=== PATIENT | female | born 1975 | race Two or more races ===

== ENCOUNTER 2016-10-22 14:01 | Emergency (ER) | payer MEDICAID ==
[~2016-10-22] VITALS: Ht 162.6 cm; Wt 79.0 kg
[2016-10-22 14:17] VITALS: Ht 162.6 cm; Wt 79.0 kg
[2016-10-22] MEDS ORDERED: SOD CHLORIDE 0.9% 1,000 ML IV STA (14:51)
[2016-10-22 14:59] LABS: URINE BLOOD (Dip) POC 2+ (NEGATIVE)
[2016-10-22] MEDS ORDERED: METOCLOPRAMIDE 10 MG INJ IV ONE (15:00)
[2016-10-22 15:33] LABS: ADD SCAN DIFF NO
[2016-10-22 15:35] LABS: BASOPHILS % 0.1 % (0.0-2.0); EOSINOPHILS % 0.3 % (0.0-7.0); HEMATOCRIT 40.2 % (37.0-47.0); HEMOGLOBIN 13.9 g/dl (12.0-16.0); LYMPHOCYTES # 1.8 10^3/ul (0.8-2.9); LYMPHOCYTES % 16.8 % (15.0-51.0); MEAN CORPUSCULAR HEMOGLOBIN 28.3 pg (29.0-33.0); MEAN CORPUSCULAR HGB CONC 34.6 g/dl (32.0-37.0); MEAN CORPUSCULAR VOLUME 81.7 fl (82.0-101.0); MEAN PLATELET VOLUME 10.6 fl (7.4-10.4); MONOCYTE # 0.7 10^3/ul (0.3-0.9); MONOCYTES % 6.7 % (0.0-11.0); NEUTROPHIL # 8.2 10^3/ul (1.6-7.5); NEUTROPHILS % 75.6 % (39.0-77.0); PLATELET COUNT 240 10^3/UL (140-415); RED BLOOD COUNT 4.92 10^6/ul (4.20-5.40); RED CELL DISTRIBUTION WIDTH 12.9 % (11.5-14.5); WHITE BLOOD COUNT 10.9 10^3/ul (4.8-10.8)
[2016-10-22 15:40] LABS: ADD UMIC YES; URINE BILIRUBIN (Dip) NEGATIVE (NEGATIVE); URINE BLOOD (Dip) 3+ (NEGATIVE); URINE COLOR LT. YELLOW (YELLOW); URINE GLUCOSE (Dip) NEGATIVE (NEGATIVE); URINE KETONES (Dip) NEGATIVE (NEGATIVE); URINE LEUKOCYTE ESTERASE (Dip) NEGATIVE (NEGATIVE); URINE NITRITE (Dip) NEGATIVE (NEGATIVE); URINE TOTAL PROTEIN (Dip) NEGATIVE (NEGATIVE); URINE UROBILINOGEN (Dip) 0.2 E.U./dL (0.1-1.0)
[2016-10-22 15:50] LABS: SQUAMOUS EPITHELIAL CELL,UR FEW
[2016-10-22 15:51] LABS: BACTERIA,URINE FEW
[2016-10-22 15:59] LABS: ALBUMIN 4.1 g/dl (3.3-4.9)
[2016-10-22 16:00] LABS: POTASSIUM 3.7 mmol/L (3.5-5.1)
[2016-10-22 16:02] LABS: ALBUMIN/GLOBULIN RATIO 1.24; BILIRUBIN,INDIRECT 0.2 mg/dl (0-1.1); BILIRUBIN,TOTAL 0.2 mg/dl (0.2-1.3); CREATININE 0.53 mg/dl (0.44-1.00); TOTAL PROTEIN 7.4 g/dl (6.1-8.1)
[2016-10-22 16:03] LABS: CALCIUM 9.5 mg/dl (8.4-10.2)
--- NOTE | 2016-10-22 16:06 | RADRPT ---
PROCEDURE: OBSTETRICAL ULTRASOUND WITH ENDOVAGINAL IMAGES CLINICAL INDICATION: Vaginal Bleed () TECHNIQUE: Multiple sonographic images of the pelvis were obtained utilizing a transabdominal and endovaginal technique. The images were reviewed on a PACS workstation. COMPARISON: None. LMP: 07/18/2016 FINDINGS: The uterus measures 12.0 x 8.5 x 10.8 cm. There is a single live intrauterine with heart rate of 171 beats per minute, mean sa c diameter of 5.87 cm, yolk sac, and crown-rump length of 6.27 cm which is consistent with a gestati onal age of 12 weeks, 6 days . The estimated date of delivery by ultrasound is 04/30/2017 . The estimated gestational age by LMP is 13 weeks, 5 days . The estimated date of delivery by LMP is 04/24/2017 . There is a 1.7 cm anterior submucosal uterine fibroid at the level of the upper body with prominent posterior displacement of the gestational sac. There is a 2.2 cm submucosal uterine fibroid at the level of the mid body, to the right of midline, with prominent displacement of the endometrium. There is a 1.7 cm posterior submucosal uterine fibroid at the level of the mid body with mild anteri or displacement of the endometrium, to the left of midline. There is a 3.5 cm posterior subserosal uterine fibroid at the level of the lower uterine segment, to the right of midline. The right ovary is not visualized. The left ovary measures 2.8 x 2.1 x 2.0 cm. There is normal vascu lar flow in the left ovary No significant ovarian lesions are seen. No significant pelvic free fluid is identified. IMPRESSION: Single live intrauterine consistent with a gestational age of 12 weeks, 6 days . The estimated date of delivery is 04/30/2017 . Dating by ultrasound is within 6 days of dating by LMP. Multiple uterine fibroids are identified, some of which are submucosal and demonstrate displacement of the gestational sac and endometrium, measuring up to 3.5 cm, as above. Nonvisualization of the right ovary. RPTAT: EE Jose Reeder Physician Date Time Electronically viewed and signed by Jose Varinder, Physician on 10/22/2016 16:06 RA/
--- NOTE | 2016-10-22 17:15 | ERD ---
ER Documentation Chief Complaint Date/Time DATE: 10/22/16 TIME: 17:10 Chief Complaint HEAVY VB TODAY AT 1200; LIGHT VB & CRAMPING NOW. 12-WKS . HPI 41-year-old female with no significant past medical history is a presents to the ED complaining of vaginal bleeding that occurred earlier today at 12 AM. Reports that she has had to change 2 pads since the onset of the bleeding. Reports that she has bilateral pelvic pain. Reports that she is nauseous and has slight vomiting. Denies any chest pain, shortness of breath, wheezing, fever, chills, cough, rhinorrhea. Patient states that her last menses on July 18, 2016. Denies any vaginal discharge. ROS All systems reviewed and are negative except as per history of present illness. PMhx/Soc History of Surgery: No Anesthesia Reaction: No Hx Neurological Disorder: No Hx Respiratory Disorders: No Hx Cardiac Disorders: No Hx Psychiatric Problems: No Hx Miscellaneous Medical Probl: No Hx Alcohol Use: No Hx Substance Use: No Hx Tobacco Use: No Smoking Status: Never smoker Physical Exam Vitals Vital Signs Date Time Temp Pulse Resp B/P Pulse Ox O2 Delivery O2 Flow Rate FiO2 10/22/16 14:17 99.9 84 16 151/81 97 Physical Exam Const: [id number], well-nourished. In no acute distress. Head: Atraumatic, normocephalic Eyes: Normal Conjunctiva without injection. No purulent discharge. ENT: Normal external ear, nose. Moist oropharynx without tonsillar exudates. Non -erythematous pharynx. Uvula midline. No drooling. No trismus. Neck: No cervical midline tenderness. Full range of motion. No meningismus. No cervical lymphadenopathy. No JVD. Resp: Clear to auscultation bilaterally. No wheezing, rhonchi, rales, or crackles. No accessory muscle use. No retractions. Cardio: Regular rate and rhythm. No murmurs, rubs or gallops. Abd: Soft, nontender, non distended. Normal bowel sounds. No palpable masses. No rebound tenderness. No guarding. Negative McBurney's point. Negative psoas sign. Negative obturator sign. Skin: No petechiae or rashes Back: No midline tenderness. No CVA tenderness. Ext: No cyanosis, or edema. Neur: Awake and alert. Normal gait. Normal coordination. Psych: Normal Mood and Affect Result Diagram: 10/22/16 1515 10/22/16 1515 Results 24 hrs Laboratory Tests Test 10/22/16 14:58 10/22/16 15:15 Bedside Urine pH (LAB) 5.5 Bedside Urine Protein (LAB) Negative Bedside Urine Glucose (UA) Negative Bedside Urine Ketones (LAB) Negative Bedside Urine Blood 2+ Bedside Urine Nitrite (LAB) Negative Bedside Urine Leukocyte Esterase (L Negative White Blood Count 10.910^3/ul Red Blood Count 4.9210^6/ul Hemoglobin 13.9g/dl Hematocrit 40.2% Mean Corpuscular Volume 81.7fl Mean Corpuscular Hemoglobin 28.3pg Mean Corpuscular Hemoglobin Concent 34.6g/dl Red Cell Distribution Width 12.9% Platelet Count 62977^3/UL Mean Platelet Volume 10.6fl Neutrophils % 75.6% Lymphocytes % 16.8% Monocytes % 6.7% Eosinophils % 0.3% Basophils % 0.1% Nucleated Red Blood Cells % 0.0/100WBC Neutrophils # 8.210^3/ul Lymphocytes # 1.810^3/ul Monocytes # 0.710^3/ul Eosinophils # 0.010^3/ul Basophils # 0.010^3/ul Nucleated Red Blood Cells # 0.010^3/ul Urine Color LT. YELLOW Urine Clarity HAZY Urine pH 6.0 Urine Specific [place] 1.025 Urine Ketones NEGATIVE Urine Nitrite NEGATIVE Urine Bilirubin NEGATIVE Urine Urobilinogen 0.2 E.U./dL Urine Leukocyte Esterase NEGATIVE Urine Microscopic RBC 2-5/HPF Urine Microscopic WBC 0-2/HPF Urine Squamous Epithelial Cells FEW Urine Calcium Oxalate Crystals MANY Urine Bacteria FEW Urine Hemoglobin 3+ Urine Glucose NEGATIVE% Urine Total Protein NEGATIVE Sodium Level 134mmol/L Potassium Level 3.7mmol/L Chloride Level 101mmol/L Carbon Dioxide Level 25mmol/L Anion Gap 12 Blood Urea Nitrogen 12mg/dl Creatinine 0.53mg/dl Glucose Level 90mg/dl Calcium Level 9.5mg/dl Total Bilirubin 0.2mg/dl Direct Bilirubin 0.00mg/dl Indirect Bilirubin 0.2mg/dl Aspartate Amino Transf (AST/SGOT) 20IU/L Alanine Aminotransferase (ALT/SGPT) 32IU/L Alkaline Phosphatase 54IU/L Total Protein 7.4g/dl Albumin 4.1g/dl Globulin 3.30g/dl Albumin/Globulin Ratio 1.24 Lipase 85U/L Current Medications Medications (Trade) Dose Ordered Sig/Lin Route PRN Reason Start Time Stop Time Status Last Admin Dose Admin Sodium Chloride (NS) 1,000 ml @ 1,000 mls/hr Q1H STAT IV 10/22/16 14:51 10/22/16 15:50 DC 10/22/16 15:10 Metoclopramide HCl (Reglan) 10 mg ONCE ONCE IV 10/22/16 15:00 10/22/16 15:01 DC 10/22/16 15:10 Procedures/MDM This is a 41-year-old female with no significant past medical history presents the ED complaining of vaginal bleeding that started earlier today at 12 AM. Patient is afebrile and nontoxic-appearing. An ultrasound, beta-hCG, CBC, type and RH, UA was ordered to evaluate patient. CBC: No evidence of severe infection or anemia Urine: No elevation in nitrites, leukocyte esterase, hematuria. No evidence of UTI Rh: O positive No indication for Rhogam at this time. beta Hcg: PROCEDURE: OBSTETRICAL ULTRASOUND WITH ENDOVAGINAL IMAGES CLINICAL INDICATION: Vaginal Bleed () TECHNIQUE: Multiple sonographic images of the pelvis were obtained utilizing a transabdominal and endovaginal technique. The images were reviewed on a PACS workstation. COMPARISON: None. LMP: 07/18/2016 FINDINGS: The uterus measures 12.0 x 8.5 x 10.8 cm. There is a single live intrauterine with heart rate of 171 beats per minute, mean sac diameter of 5.87 cm, yolk sac, and crown-rump length of 6.27 cm which is consistent with a gestational age of 12 weeks, 6 days . The estimated date of delivery by ultrasound is 04/30/2017 . The estimated gestational age by LMP is 13 weeks, 5 days . The estimated date of delivery by LMP is 04/24/2017 . There is a 1.7 cm anterior submucosal uterine fibroid at the level of the upper body with prominent posterior displacement of the gestational sac. There is a 2.2 cm submucosal uterine fibroid at the level of the mid body, to the right of midline, with prominent displacement of the endometrium. There is a 1.7 cm posterior submucosal uterine fibroid at the level of the mid body with mild anterior displacement of the endometrium, to the left of midline. There is a 3.5 cm posterior subserosal uterine fibroid at the level of the lower uterine segment, to the right of midline. The right ovary is not visualized. The left ovary measures 2.8 x 2.1 x 2.0 cm. There is normal vascular flow in the left ovary No significant ovarian lesions are seen. No significant pelvic free fluid is identified. IMPRESSION: Single live intrauterine consistent with a gestational age of 12 weeks , 6 days . The estimated date of delivery is 04/30/2017 . Dating by ultrasound is within 6 days of dating by LMP. Multiple uterine fibroids are identified, some of which are submucosal and demonstrate displacement of the gestational sac and endometrium, measuring up to 3.5 cm, as above. Nonvisualization of the right ovary. Patient's bleeding symptoms have stabilized while in the department. Low suspicion for symptomatic anemia, ectopic , sepsis, PID, appendicitis, ovarian torsion, tubo-ovarian abscess, surgical abdomen, or other emergent conditions. Patient was educated that there is a risk for threatened . Patient to follow up with [facility] in 2 days for further evaluation and treatment. Patient is to return sooner to the ED for any worsening symptoms. Patient's questions were answered. Patient understood and agreed with discharge plan. Departure Diagnosis: Primary Impression: Vaginal bleeding in patient at less than 20 weeks ges... Condition: Stable Patient Instructions: Bleeding During Early Referrals: COMMUNITY CLINICS YOU HAVE RECEIVED A MEDICAL SCREENING EXAM AND THE RESULTS INDICATE THAT YOU DO NOT HAVE A CONDITION THAT REQUIRES URGENT TREATMENT IN THE EMERGENCY DEPARTMENT. FURTHER EVALUATION AND TREATMENT OF YOUR CONDITION CAN WAIT UNTIL YOU ARE SEEN IN YOUR DOCTORS OFFICE WITHIN THE NEXT 1-2 DAYS. IT IS YOUR RESPONSIBILITY TO MAKE AN APPOINTMENT FOR FOLOW-UP CARE. IF YOU HAVE A PRIMARY DOCTOR --you should call your primary doctor and schedule an appointment IF YOU DO NOT HAVE A PRIMARY DOCTOR YOU CAN CALL OUR PHYSICIAN REFERRAL HOTLINE AT IF YOU CAN NOT AFFORD TO SEE A PHYSICIAN YOU CAN CHOSE FROM THE FOLLOWING [facility] CLINICS [facility] [address] [facility] [facility]. [facility] [address] [facility]. [facility] [address] [facility] [address] [facility] [address] [facility]. [address] [facility]. [facility] YOU HAVE RECEIVED A MEDICAL SCREENING EXAM AND THE RESULTS INDICATE THAT YOU DO NOT HAVE A CONDITION THAT REQUIRES URGENT TREATMENT IN THE EMERGENCY DEPARTMENT. FURTHER EVALUATION AND TREATMENT OF YOUR CONDITION CAN WAIT UNTIL YOU ARE SEEN IN YOUR DOCTORS OFFICE WITHIN THE NEXT 1-2 DAYS. IT IS YOUR RESPONSIBILITY TO MAKE AN APPOINTMENT FOR FOLOW-UP CARE. IF YOU HAVE A PRIMARY DOCTOR --you should call your primary doctor and schedule and appointment IF YOU DO NOT HAVE A PRIMARY DOCTOR YOU CAN CALL OUR PHYSICIAN REFERRAL HOTLINE AT . IF YOU CAN NOT AFFORD TO SEE A PHYSICIAN YOU CAN CHOSE FROM THE FOLLOWING [facility] INSTITUTIONS: [facility] [address] [place] [address] [facility] [address] [place] [address] [facility] [address] [place] [address] [facility] [place] [address] [facility] [address] [place], [place] [phone] OFFICE FAX ELIZABETH RIBERA [address] [place], [place] [phone] [facility] [address] [place], [place] [phone] [facility] [address] [facility], [address] [id number] JORGE A [address] [address] [place] [phone] [facility] [address] [place] [id number] [address] [facility] [place] [address] [address], [address] [facility] [address] [address] BREWSTER, [place] [address] [facility]. [address], [facility] [address] [address] [place], [place] [address] [place] [address] [facility] Hours: 8:00 am - 5:00 pm Additional Instructions: Visite a schneider obstetrica en dos fritz para un EXAMEN.Regrese a estas instalaciones si no se mejora draby esperbamos o darby le dijimos. MOSES GUEVARA PA-C Oct 22, 2016 17:15
== END 2016-10-22 17:22 | disposition home or self-care (01) ==
LOC: FTE 14:01
DX: O20.9 Hemorrhage in early pregnancy, unspecified (principal); R10.2 Pelvic and perineal pain; Z3A.12 12 weeks gestation of pregnancy
CPT/HCPCS: 76801; 80053; 81001; 81003; 83690; 84702; 85025; 86900; 86901; J2765; J7030; 36415; 96374

== ENCOUNTER 2017-04-29 16:40 | Inpatient (IN) | payer MEDICAID ==
[~2017-04-29] VITALS: Ht 152.4 cm; Wt 96.0 kg
[2017-04-29 17:10] VITALS: BP 128/82; PULSE 78; RESP 20
--- NOTE | 2017-04-29 17:27 | RADRPT ---
PROCEDURE: US biophysical profile. CLINICAL INDICATION: Decreased motion. TECHNIQUE: Multiple sonographic images of the uterus were obtained. The images were revi ewed on a PACS workstation. COMPARISON: No prior studies are available for comparison. FINDINGS: There is a single live intrauterine gestation. heart rate is 126 beats per minute. The position is cephalic. The placenta is right lateral grade 2 with no abruption or previa. The NING is 8.6 cm. (Normal = 5-20 cm.) Breathing Movement: 2 Gross Body Movement: 2 Tone: 2 Qualitative Amniotic Fluid Volume: 2 TOTAL: 8 IMPRESSION: 1. The biophysical score is 8/8. RPTAT: QQ .Cesario Apple MD, MD Date Time Electronically viewed and signed by .Cesario Apple MD, on 04/29/2017 17:27 .R/
[2017-04-29 17:54] LABS: ADD UMIC YES; UR ASCORBIC ACID NEGATIVE (NEGATIVE); UR BACTERIA FEW /HPF (NONE SEEN); UR BILIRUBIN (Dip) NEGATIVE (NEGATIVE); UR BLOOD (Dip) NEGATIVE (NEGATIVE); UR CLARITY CLEAR (CLEAR); UR COLOR STRAW (YELLOW); UR GLUCOSE (Dip) NEGATIVE (NEGATIVE); UR KETONES (Dip) NEGATIVE (NEGATIVE); UR LEUKOCYTE ESTERASE (Dip) TRACE Leu/ul (NEGATIVE); UR NITRITE (Dip) NEGATIVE (NEGATIVE); UR RBC 1 /HPF (0-5); UR SPECIFIC GRAVITY (Dip) 1.008 (1.003-1.030); UR SQUAMOUS EPITHELIAL CELL FEW /HPF (FEW); UR TOTAL PROTEIN (Dip) NEGATIVE (NEGATIVE); UR UROBILINOGEN (Dip) NEGATIVE (NEGATIVE)
[2017-04-29 17:54] LABS: BASOPHILS % 0.2 % (0.0-2.0); EOSINOPHILS % 0.3 % (0.0-7.0); HEMATOCRIT 38.7 % (37.0-47.0); HEMOGLOBIN 13.6 g/dl (12.0-16.0); LYMPHOCYTES # 1.7 10^3/ul (0.8-2.9); LYMPHOCYTES % 18.1 % (15.0-51.0); MEAN CORPUSCULAR HEMOGLOBIN 29.6 pg (29.0-33.0); MEAN CORPUSCULAR HGB CONC 35.1 g/dl (32.0-37.0); MEAN CORPUSCULAR VOLUME 84.1 fl (82.0-101.0); MONOCYTE # 0.8 10^3/ul (0.3-0.9); MONOCYTES % 8.7 % (0.0-11.0); NEUTROPHIL # 6.9 10^3/ul (1.6-7.5); NEUTROPHILS % 71.9 % (39.0-77.0); PLATELET COUNT 226 10^3/UL (140-415); RED CELL DISTRIBUTION WIDTH 13.3 % (11.5-14.5); WHITE BLOOD COUNT 9.6 10^3/ul (4.8-10.8)
[2017-04-29 18:25] LABS: PARTIAL THROMBOPLASTIN TIME 26.4 Sec (25.0-35.0)
[2017-04-29 18:28] LABS: ALBUMIN 3.5 g/dl (3.3-4.9); ALBUMIN/GLOBULIN RATIO 0.94; BILIRUBIN,INDIRECT 0.2 mg/dl (0-1.1); BILIRUBIN,TOTAL 0.2 mg/dl (0.2-1.3); CALCIUM 10.1 mg/dl (8.4-10.2); CREATININE 0.62 mg/dl (0.44-1.00); POTASSIUM 4.1 mmol/L (3.5-5.1); TOTAL PROTEIN 7.2 g/dl (6.1-8.1); URIC ACID 5.5 mg/dl (3.1-7.9)
[2017-04-29 18:30] LABS: INR 0.95; PROTIME 12.7 Sec (12.2-14.2)
[2017-04-29] MEDS ORDERED: IBUPROFEN 600 MG TAB PO PRN (23:30)
[2017-04-29] MEDS ORDERED: OXYTOCIN 30 UNITS/LR 500 ML IV SCH ×2 (23:30)
[2017-04-29] MEDS ORDERED: LIDOCAINE 1% (MPF) 30 ML INJ INJ PRN (23:30)
[2017-04-29] MEDS ORDERED: OXYTOCIN 30 UNITS/LR 500 ML IV PRN (23:30)
[2017-04-29] MEDS ORDERED: CARBOPROST 250 MCG INJ IM PRN (23:30)
[2017-04-29] MEDS ORDERED: METHYLERGONOVINE 0.2 MG INJ IM PRN (23:30)
[2017-04-29] MEDS ORDERED: MISOPROSTOL 200 MCG TAB PR PRN (23:30)
[2017-04-29] MEDS ORDERED: BUTORPHANOL 2 MG INJ IV PRN (23:30)
[2017-04-30] MEDS ORDERED: AMPICILLIN 2 GM/NS (PMX) 100 ML IV ONE (01:00)
[2017-04-30] MEDS ORDERED: LACTATED RINGER'S 1,000 ML IV PRN (01:00)
[2017-04-30 01:15] LABS: INR 0.91; PROTIME 12.2 Sec (12.2-14.2)
[2017-04-30] MEDS: LACTATED RINGER'S 1,000 ML IV SCH ×3 (01:15→14:18)
[2017-04-30 01:16] LABS: PARTIAL THROMBOPLASTIN TIME 26.1 Sec (25.0-35.0)
--- NOTE | 2017-04-30 04:10 | HP ---
Date/Time of Note Date/Time of Note DATE: 04/30/17 TIME: 04:00 OB - History Hx of Present Free Text/Dictation 41y.o at triage with c/o headahce and dissiness at 39w1d BP 128/82, 127/80 initial exam ftp /40%/-2 membrane intact re exam cervix 2/50/-2 admitted for expectant management poss augmentation BPP 8/8 NING 8.6 urine protein neg platelet 226 Chief Complaint: headache and dizziness Estimated Due Date: May 05, 2017 : 2 Para: 1 Spontaneous : 0 Therapeutic : 0 Care: Limited Care Obstetrical Complications: None Medical Complications: None Past Family/Social History * Past Medical, Surgical, Family and Obstetric Histories reviewed from chart. Blood Type: Unknown Rubella: unknown RPR/VDRL: Unknown GBS Status: Unknown HBsAG: Unknown OB Admission Exam Vital Signs Vital Signs Vital Signs Date Time Temp Pulse Resp B/P Pulse Ox O2 Delivery O2 Flow Rate FiO2 04/29/17 17:10 97.8 78 20 128/82 Room Air Physical Exam HEENT: WNL Heart: Rhythm Normal Lungs: Clear, Equal Abdomen: WNL Extremities: Normal Reflexes: Normal Cervical Dilatation: 2cm Effacement: 50% Station: -2 Membranes: Intact Amniotic Fluid: Unevaluable Heart Rate: 120's Accelerations: Accelerations Present Decelerations: No Decelerations Varibility: Moderate Contractions on Admission: >10 Minutes Apart Intensity: Mild Last 72 hours Lab Results CBC & BMP 04/29/17 17:27 Liver Function Test 04/29/17 17:27 Alanine Aminotransferase (ALT/SGPT) 27 Albumin 3.5 Alkaline Phosphatase 155 H Aspartate Amino Transf (AST/SGOT) 23 Direct Bilirubin 0.00 Total Protein 7.2 OB Assessment/Plan Other Assessment: IUP 39w1d borderline oligohydramnios Plan: Expectant Management, Other (augmentation) RENEE OLSEN MD Apr 30, 2017 04:10
--- NOTE | 2017-04-30 04:27 | HP ---
Date/Time of Note Date/Time of Note DATE: 04/30/17 TIME: 04:10 OB - History Hx of Present Free Text/Dictation 41 y.o at 39w1d with c/o headahe and dizziness , no significant uterine contractions intact membrane BPP 8/8 NING 8.6 BP 128/82, 127/80 at 34w BP 130's/90 urine protein neg initial VE ftp/40%/-2 , reexam 2/50%/-2 admitted for expectant management poss augmentation Chief Complaint: headache and dizziness Estimated Due Date: May 05, 2017 : 2 Para: 1 Spontaneous : 0 Therapeutic : 0 Care: Good Care Ultrasounds: Normal mid trimester US Abnormal Ultrasound Findings: rt clubfoot, uterine fibroid Obstetrical Complications: None Medical Complications: None Past Family/Social History * Past Medical, Surgical, Family and Obstetric Histories reviewed from chart. Blood Type: O+ Rubella: immune RPR/VDRL: Negative GBS Status: Negative HBsAG: Negative OB Admission Exam Vital Signs Vital Signs Vital Signs Date Time Temp Pulse Resp B/P Pulse Ox O2 Delivery O2 Flow Rate FiO2 04/29/17 17:10 97.8 78 20 128/82 Room Air Physical Exam HEENT: WNL Heart: Rhythm Normal Lungs: Clear, Equal Abdomen: WNL Extremities: Normal Reflexes: Normal Cervical Dilatation: 2cm Effacement: 50% Station: -2 Membranes: Intact Amniotic Fluid: Unevaluable Heart Rate: 120's Accelerations: Accelerations Present Decelerations: No Decelerations Varibility: Moderate Contractions on Admission: 6-10 Minutes Apart Intensity: Mild Last 72 hours Lab Results CBC & BMP 04/29/17 17:27 Liver Function Test 04/29/17 17:27 Alanine Aminotransferase (ALT/SGPT) 27 Albumin 3.5 Alkaline Phosphatase 155 H Aspartate Amino Transf (AST/SGOT) 23 Direct Bilirubin 0.00 Total Protein 7.2 OB Assessment/Plan Other Assessment: IUP 39w1d in early labor Plan: Expectant Management, Other (poss pitocin augmentation) RENEE OLSEN MD Apr 30, 2017 04:20
[2017-04-30] MEDS ORDERED: AMPICILLIN 1 GM/NS (PMX) 50 ML IV SCH (05:00)
[2017-04-30] MEDS ORDERED: OXYTOCIN 30 UNITS/LR 500 ML IV SCH (10:00)
[2017-04-30] MEDS ORDERED: EPHEDrine SULFATE 50 MG/5 ML SYG IV PRN (14:30)
[2017-04-30] MEDS ORDERED: DIPHENHYDRAMINE 50 MG INJ IV PRN (14:30)
[2017-04-30] MEDS ORDERED: NALOXONE (0.4 MG/ML) INJ IV PRN (14:30)
[2017-04-30] MEDS ORDERED: ONDANSETRON 4 MG INJ IV PRN ×2 (14:30→18:30)
[2017-04-30] MEDS ORDERED: FENTAnyl 2MCG/ML-ROPIV 0.2% 100 ML BAG EPI SCH (14:30)
--- NOTE | 2017-04-30 17:35 | LDN ---
Date/Time of Note Date/Time of Note DATE: 04/30/17 TIME: 17:20 Delivery Summary Normal spontaneous vaginal delivery baby boy from OA position shoulders delivered without any difficulty rest of the baby's body followed cord clamped after stopped pulsation, placenta spontaneous expulsion inspected complete, blood loss 200 cc patient sustained very small first-degree perineal laceration repaired with 3-0 chromic catgut Weeks of Gestation 39 weeks and 2 days Placenta Delivered: Spontaneously Meconium: none Episiotomy: No Laceration repair: Small first-degree perineal laceration repaired with 3-0 chromic catgut Anesthesia type: Epidural Sponge & Needle done & correct: Yes Any foreign bodies felt in the: No Problems: Delivery Information Sex Infant Sex: male Apgars 1 Minute: 9 5 Minute: 9 Suctioning Nose & mouth suctioned at jose: Yes Delee suction performed: No Umbilical Cord Umbilical cord with: 3 Vessels Cord presentations: nuchal cord Cord Blood was obtained: Yes (Baby has right clubfoot) GUCCI JIMENES MD Apr 30, 2017 17:31
[2017-04-30] MEDS: OXYTOCIN 30 UNITS/LR 500 ML IV SCH ×2 (18:07→21:30)
[2017-04-30] MEDS ORDERED: OXYCODONE/ASPIRIN (4.88/325) TAB PO PRN ×2 (18:30)
[2017-04-30] MEDS ORDERED: DIBUCAINE 1% 30 GM OINT PR PRN (18:30)
[2017-04-30] MEDS ORDERED: LANOLIN 7 GM TUBE TOP PRN (18:30)
[2017-04-30] MEDS ORDERED: HYDROCODONE/APAP (5/325) TAB PO PRN ×2 (18:30)
[2017-04-30] MEDS ORDERED: WITCH HAZEL/GLYCERIN PAD PR PRN (18:30)
[2017-04-30] MEDS ORDERED: BENZOCAINE 20% 56 ML SPRAY TOP PRN (18:30)
[2017-04-30] MEDS ORDERED: ACETAMINOPHEN 325 MG TAB PO PRN (18:30)
[2017-04-30 18:40] VITALS: BP 113/70; PULSE 80; RESP 16
[2017-04-30] MEDS: IBUPROFEN 600 MG TAB PO SCH ×2 (18:55→23:48)
[2017-04-30 19:35] VITALS: BP 119/73; PULSE 89; RESP 19
[2017-04-30] MEDS: SENNA/DOCUSATE NA (8.6MG/50MG) TAB PO SCH (21:27)
[2017-05-01] VITALS: BP 121/79; PULSE 83; RESP 19
[2017-05-01 04:10] VITALS: BP 118/66; PULSE 83; RESP 19
[2017-05-01] MEDS: IBUPROFEN 600 MG TAB PO SCH ×4 (05:41→23:39)
[2017-05-01 07:07] LABS: BASOPHILS % 0.2 % (0.0-2.0); EOSINOPHILS % 0.2 % (0.0-7.0); HEMOGLOBIN 12.7 g/dl (12.0-16.0); LYMPHOCYTES # 1.6 10^3/ul (0.8-2.9); LYMPHOCYTES % 11.8 % (15.0-51.0); MEAN CORPUSCULAR HEMOGLOBIN 29.6 pg (29.0-33.0); MEAN CORPUSCULAR HGB CONC 35.3 g/dl (32.0-37.0); MEAN CORPUSCULAR VOLUME 83.9 fl (82.0-101.0); MONOCYTES % 7.7 % (0.0-11.0); NEUTROPHIL # 10.5 10^3/ul (1.6-7.5); NEUTROPHILS % 79.3 % (39.0-77.0); PLATELET COUNT 200 10^3/UL (140-415); RED BLOOD COUNT 4.29 10^6/ul (4.20-5.40); RED CELL DISTRIBUTION WIDTH 13.5 % (11.5-14.5); WHITE BLOOD COUNT 13.3 10^3/ul (4.8-10.8)
[2017-05-01 07:50] VITALS: BP 115/83; PULSE 84; RESP 17
[2017-05-01] MEDS: SENNA/DOCUSATE NA (8.6MG/50MG) TAB PO SCH ×2 (09:11→21:06)
[2017-05-01 12:00] VITALS: BP 120/74; PULSE 92; RESP 19
--- NOTE | 2017-05-01 13:55 | QN ---
Documentation Comment day 1 Afebrile VSS Abdomen soft Uterus firm Lochia normal Extremities normal Ambulation encouraged GUCCI JIMENES MD May 01, 2017 13:55
[2017-05-01 16:00] VITALS: BP 102/58; PULSE 80; RESP 17
[2017-05-01] MEDS ORDERED: DIPHTH/TET/ACEL PERTUSS (ADULT) 0.5 ML VIAL IM* ONE (17:00)
[2017-05-01] MEDS ORDERED: INFLUENZA VIRUS VACCINE 0.5 ML SYG IM* ONE (20:00)
[2017-05-01 20:15] VITALS: BP 122/73; PULSE 91; RESP 18
[2017-05-02 04:15] VITALS: BP 121/71; PULSE 76; RESP 18
[2017-05-02] MEDS: IBUPROFEN 600 MG TAB PO SCH ×3 (05:35→17:56)
[2017-05-02 08:00] VITALS: BP 135/74; PULSE 88; RESP 16
[2017-05-02] MEDS ORDERED: DIPHTH/TET/ACEL PERTUSS (ADULT) 0.5 ML VIAL IM* ONE (09:00)
[2017-05-02] MEDS ORDERED: MEASLES,MUMPS,RUBELLA VACCINE INJ SC* ONE (09:00)
[2017-05-02] MEDS: SENNA/DOCUSATE NA (8.6MG/50MG) TAB PO SCH (09:17)
--- NOTE | 2017-05-02 12:18 | QN ---
Documentation Comment PPD#2 is stable afebrile No VB +BM +voids VS stable Gen NAD Abd soft NT ND Genitalia No blood at perinium --->discharge plan TRAVIS TIDWELL M.D. May 02, 2017 12:18
--- NOTE | 2017-05-02 12:20 | DS ---
Date/Time of Note Date/Time of Note DATE: 05/02/17 TIME: 12:19 Discharge Summary Admission/Discharge Info Admit Date/Time Apr 29, 2017 at 22:40 Discharge Date/Time Discharge Diagnosis Patient Condition: Good Procedures vaginal delivery Hospital Course uneventful Primary Care Provider Not On Staff Doctor TRAVIS TIDWELL M.D. May 02, 2017 12:20
[2017-05-02 16:10] VITALS: BP 125/87; PULSE 78; RESP 18
[2017-05-02] MEDS ORDERED: INFLUENZA VIRUS VACCINE 0.5 ML SYG IM* ONE (17:00)
== END 2017-05-02 18:00 | disposition home or self-care (01) | DRG 774 ==
LOC: OBT 16:40 → L-D 16:42 → OBT 22:40 → L-D 22:40 → PP1 04-30 18:40
PROVIDERS: ADMIT Obstetrics & Gynecology; ATTEND Obstetrics & Gynecology
PROC: 10E0XZZ Delivery of Products of Conception, External Approach (ICD-10-PCS; principal; 2017-04-30)
PROC: 0HQ9XZZ Repair Perineum Skin, External Approach (ICD-10-PCS; 2017-04-30)
PROC: 3E0P3VZ Introduction of Hormone into Female Reproductive, Percutaneous Approach (ICD-10-PCS; 2017-04-30)
DX: O69.81X0 Labor and delivery complicated by cord around neck, without compression, not applicable or unspecified (principal); O10.92 Unspecified pre-existing hypertension complicating childbirth; R51 Headache; R42 Dizziness and giddiness; O70.0 First degree perineal laceration during delivery; Z3A.39 39 weeks gestation of pregnancy; Z37.0 Single live birth
CPT/HCPCS: 36415; 62319; 76818; 80053; 81001; 84560; 85025; 85384; 85610; 85730; 86592; 86900; 86901; 90686; 90715; 96360; G0463; J2590; J3010; J7120